=== PATIENT | female | born 1960 | race Caucasian/White ===

== ENCOUNTER → 2023-04-15 09:07 | Outpatient (REF) | payer OTHER, SELFPAY | LOC: HWRCS 09:07 | PROVIDERS: ATTENDING PHYSICIAN Internal Medicine Cardiovascular Disease; FAMILY PHYSICIAN Physician Assistant | DX: I10 Essential (primary) hypertension (principal); R00.2 Palpitations | CPT/HCPCS: 93306 ==

== ENCOUNTER 2023-08-08 14:35 | Emergency (ER) | payer OTHER, SELFPAY ==
[2023-08-08 14:39] VITALS: BP 148/94
--- NOTE | 2023-08-08 16:35 | ED.MUSCINJ ---
HPI-Injury
General
Chief Complaint: Musculo-Skeletal Complaint
Source: patient
Exam Limitations: none
Time Seen by Provider: 08/08/23 16:26
Nursing documentation reviewed up to this point in time: agreed with
History of Present Illness-Injury
Is this injury a work related problem?: No
Is pt an associate of [facility]/[place]?: No
Initial Injury comments:
Patient to ED with complaint of left knee and calf pain and swelling. Tibial plateu fx [address] ago[address] ORIF [address] Steven Olivas. Has not had any issues until days ago when symptoms started. SHe was seen by PA at [facility] today. She was told
xrays showed no issues with hardware. Told to take ibuprofen. Sent to ED for US and labs. She denies any injury. Denies fever/chills, skin rash. Brought self to ED for eval.
Past History
Past History
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
ED Past Surgical History: Orthopedic
Social History
Tobacco: Non-smoker
Alcohol: Occasional
Drug: None
Review of Systems
Review of Systems
Allergies reviewed?: Yes
All Other Systems: ROS reviewed and negative except as documented in HPI and ROS
Constitutional: Reports no symptoms
EENT: Reports no symptoms
Respiratory: Reports no symptoms
Cardiac: Reports no symptoms
ABD/GI: Reports no symptoms
Musculoskeletal: Reports joint pain (pain and swelling to left knee and calf)
Skin: Reports no symptoms
Neurological: Reports no symptoms
Psychiatric: Reports no symptoms
Musculoskeletal Injury Exam
Musculoskeletal Injury Exam
Left Knee:
Pain with Movement?: Moderate
Tender to palpation?: Mild
Soft tissue swelling?: Mild
External deformity and angulation?: None
Joint effusion?: None
Hematoma-local bleeding into tissue?: None
Strain- Sprain- Tear (Connective tissue injury)?: None
Crepitus with movement?: No
Joint instability?: No
Malalignment/deformity?: No
Range of motion: Limited
Distal skin color and temperature: normal-warm & good color
Capillary Refill: normal
Normal distal neurovascular exam?: Yes
Peripheral Pulses: posterior tibial (left): 3+ and dorsalis pedis (left): 3+
Left Calf:
Pain with Movement?: Mild
Tender to palpation?: Mild
Soft tissue swelling?: Mild
External deformity and angulation?: None
Joint effusion?: None
Contusion?: None
Hematoma-local bleeding into tissue?: None
Strain- Sprain- Tear (Connective tissue injury)?: None
Crepitus with movement?: No
Joint instability?: No
Malalignment/deformity?: No
Range of motion: Full
Distal skin color and temperature: normal-warm & good color
Capillary Refill: normal
Normal distal neurovascular exam?: Yes
Phy Exam
General Physical Exam
General Presentation: well appearing and no apparent distress
General age: appears stated age
General Skin: warm and dry
General Habitus: normal
General Mental: alert
Musculoskeletal Exam
Musculoskeletal Exam: full ROM and neuro vasc intact
Skin Exam
Skin Exam: normal color, warm/dry, no rash and other (No redness to LLE)
Psychiatric Exam
Psychiatric Exam: normal mood/affect
Injury Course
Orders/Labs/Results
Orders:
Orders
08/08/23 15:22
US Legs, Left [US Periph Venous LOWER Ext LT] Urgent
Comment:
Reason For Exam: swelling
08/08/23 16:40
CRP [C-Reactive Protein] Stat
Complete Blood Count/With Diff Urgent
Comprehensive Metabolic Panel Urgent
Sed Rate [Erythrocyte Sed Rate] Urgent
08/08/23 17:23
Knee Immobilizer Left-Treatmen ONCE
Abnormal Lab Results
08/08/23
16:40
RBC 4.07 L 10^6/uL
(4.20-5.40)
Hct 36.7 L %
(37.0-47.0)
MPV 11.7 H fL
(7.4-10.4)
Glucose 106 H mg/dl
(70-99)
08/08/23 16:40
08/08/23 16:40
*Radiology
Radiology exam reviewed: radiology read reviewed
*Pulse Oximetry
Patient hypoxic: no
*Critical Care Note
Total Time (30-74mins, 75-104mins- exclusive of procedures): Not Applicable
Update Note
Update Note:
Labs unremarkable. Afebrile in dept. Will place in knee immobilizer, recommend ice. She iwll follow up with ortho if her symptoms do not improve over the next week.
ED Attending Note
-
Portions of this chart may have been created with voice recognition software.� Occasional wrong word or��sound alike� substitutions may have occurred due to the inherent limitations of voice recognition software.
Discharge Plan
Departure
Patient Disposition: Home (Routine Discharge)
Date of Disposition: 08/08/23
Time of Disposition: 17:23
Patient with high blood pressure during this ER visit?: No
Condition: Good
Covid-19: Not Applicable
Discharge Problem:
Pain and swelling of left knee
Instructions: Knee Immobilizer (DC), Ibuprofen, Knee Pain (DC), Using Cold for Pain
Prescriptions:
No Action
lisinopril 5 mg tablet
5 mg PO DAILY Qty: 30 0RF
Referrals:
Héctor Harmon MD [Non-Admitting Privileges] - (Follow up if your symptoms do not improve over the next 5-7 days.)
Caty Daniel PA-C [Family Provider] -
Interventions
Interventions:
*Risk Screen - Suicide Last Done: 08/08/23 14:39
*General Assessment Last Done: 08/08/23 14:39
*Neglect/Abuse Screening Last Done: 08/08/23 14:39
ED- Fall Risk Assessment Last Done: 08/08/23 17:49
*ED COVID-19 Vaccine History Last Done: 08/08/23 14:39
*Nursing Disposition Last Done: 08/08/23 17:49
ED-Musculoskeletal Assessment Last Done: 08/08/23 17:00
Discharge Date and Time
Discharge Date/Time: 08/08/23 17:50
Print Language: BURMESE
[2023-08-08 16:47] LABS: % Basophils 0.4 % (0-2); % Eosinophils 3.3 % (0-6); % Immature Granulocytes 0.2 % (0-0.5); % Lymphocytes 21.1 % (20.5-51.1); % Monocytes 6.4 % (1.7-9.3); % Neutrophils 68.6 % (42.2-75.2); Absolute Eosinophils 0.2 10^3/uL (0-0.7); Absolute Lymphocytes 1.2 10^3/uL (1.2-3.4); Absolute Monocytes 0.4 10^3/uL (0.1-0.6); Absolute Neutrophils 3.8 10^3/uL (1.4-6.5); Hematocrit 36.7 % (37.0-47.0); Hemoglobin 12.5 g/dL (12.0-16.0); Mean Corp Hgb Conc. 34.1 g/dL (33.0-37.0); Mean Corpuscular Hgb 30.7 pg (27.0-31.0); Mean Corpuscular Volume 90.2 fL (81.0-99.0); Mean Platelet Volume 11.7 fL (7.4-10.4); Nucleated Red Blood Cells % 0 %; Platelet Count 170 10^3/uL (130-400); Red Blood Cell Count 4.07 10^6/uL (4.20-5.40); Red Cell Dist. Width 12.1 % (11.5-14.5); White Blood Cell Count 5.5 10^3/uL (4.8-10.8)
[2023-08-08 17:00] VITALS: BP 142/81
[2023-08-08 17:03] LABS: ALT (SGPT) 26 U/L (0-35); AST (SGOT) 21 U/L (14-36); Albumin 4.6 g/dl (3.5-5.0); Alkaline Phosphatase 70 U/L (38-126); Blood Urea Nitrogen 14 mg/dl (7-17); Calcium 9.8 mg/dl (8.4-10.2); Carbon Dioxide 26 mmol/L (22-30); Chloride 105 mmol/L (98-107); Glucose 106 mg/dl (70-99); Potassium 3.7 mmol/L (3.5-5.1); Sodium 139 mmol/L (135-145); Total Bilirubin 0.4 mg/dl (0.2-1.3); eGFR > 60.00
[2023-08-08 17:12] LABS: Erythrocyte Sed Rate 17 mm/hour (0-20)
[2023-08-08 17:19] LABS: C-Reactive Protein < 5.00 mg/L (0.0-10.00)
== END 2023-08-08 17:50 | disposition home or self-care (01) ==
LOC: EMR 14:35
PROVIDERS: Nurse Practitioner; EMERGENCY PHYSICIAN Student in an Organized Health Care Education/Training Program; FAMILY PHYSICIAN Physician Assistant
DX: M25.462 Effusion, left knee (principal); M25.562 Pain in left knee; M79.605 Pain in left leg; I10 Essential (primary) hypertension; Q79.8 Other congenital malformations of musculoskeletal system
CPT/HCPCS: 99284; 29505; 80053; 85025; 85652; 86140; 93971

== ENCOUNTER 2024-03-26 09:44 | Emergency (ER) | payer OTHER, SELFPAY ==
[2024-03-26 09:53] VITALS: BP 117/94
[2024-03-26 10:07] VITALS: BP 144/100
[2024-03-26 10:15] VITALS: BP 136/103
--- NOTE | 2024-03-26 10:23 | EDRN ---
Dr. Yancey in room w/pt at this time.
--- NOTE | 2024-03-26 10:29 | ED.GENMED ---
History of Present Illness
General
Chief Complaint: Cardiac Symptoms
Source: patient
Time Seen by Provider: 03/26/24 10:13
History of Present Illness
History of Present Illness:
63-year-old female with a history of [place] syndrome, hypertension, without recent changes of her medications presents with complaints of palpitations that started yesterday. She says that she stopped doing work around the house and just laid on
the sofa all day. She went to bed last night presuming that she would get better when she woke up however this morning she noted continued palpitations. Then, on her way to work, she noted discomfort in the right lower back that feels like she
'strained a muscle', although she denies heavy lifting or event that may have precipitated this. She describes it as mild, 3 out of 10, now 2 out of 10 without radiation. She denies abdominal pain, chest pain, dyspnea, headache, dizziness, leg
swelling, or other complaints.
Past History
Past History
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
ED Past Surgical History: Orthopedic and Other (Chest/breast/hand surgery related to [place] syndrome)
Social History
Tobacco: Non-smoker
Alcohol: Occasional
Drug: None
Employment: Employed
Phy Exam
Physical Exam
Physical Exam:
GENERAL: Alert , in no apparent distress, very well-appearing
EYE: pupils equal and reactive
NECK: Supple, no significant adenopathy.
ENT: o/p clr, mmm.
CARDIAC: Regular rate and rhythm .
LUNGS: Clear breath sounds bilaterally, no acute respiratory distress, no wheezes/rales/rhonchi
ABDOMEN: Soft, without focal tenderness, no r/g, no cvat
NEUROLOGICAL: Alert and oriented, no focal neuro deficits
SKIN: Warm and dry, skin intact, specifically no rash noted at right back area.
MUSCULOSKELETAL: No edema, well perfused.
PSYCH: Normal and appropriate interaction.
Course
Orders/Labs/Results
Orders:
Orders
03/26/24 09:44
Electrocardiogram (*1) Urgent
Reason for Study: Palpitations
EKG- Treatment ONCE
03/26/24 10:19
Cardiac Monitoring- Treatment ONCE
IV Insert/Care/Rem.- Treatment PRN
03/26/24 10:21
Complete Blood Count/With Diff Urgent
Comprehensive Metabolic Panel Urgent
TSH Urgent
Comment: ADD ON
Troponin I Urgent
03/26/24 10:31
Add On- LAB Urgent
Tests Added?: tsh
0.9% Sodium Chloride 500 ml [Nss] 500 ml IV BOLUS
Renal & Bladder US [US Renal With Bladder] Urgent
Comment:
Reason For Exam: R back pain
03/26/24 12:09
Urinalysis Reflex To Culture Urgent
Date Specimen was Collected: 03/26/24
Time Specimen was Collected: 12:06
Urine Microscopic Reflex Cult Urgent
Abnormal Lab Results
03/26/24 03/26/24
10:21 12:09
MPV 11.5 H fL
(7.4-10.4)
Absolute Lymphs (auto) 0.9 L 10^3/uL
(1.2-3.4)
Lymphocytes % 17.9 L %
(20.5-51.1)
BUN 22 H mg/dl
(7-17)
Glucose 110 H mg/dl
(70-99)
Ur Occult Blood Reflex 3+ A
(Negative)
03/26/24 10:21
03/26/24 10:21
Vital Signs
Initial and Last Documented VS:
Initial Vital Signs
Temp Pulse Resp BP Pulse Ox
98.4 F 119 20 117/94 99
03/26/24 09:53 03/26/24 09:53 03/26/24 09:53 03/26/24 09:53 03/26/24 09:53
Last Documented Vital Signs
Temp Pulse Resp BP Pulse Ox
98.4 F 86 16 132/91 98
03/26/24 09:53 03/26/24 12:15 03/26/24 12:15 03/26/24 12:00 03/26/24 12:15
*Critical Care Note
Total Time (30-74mins, 75-104mins- exclusive of procedures): Not Applicable
Update Note
Update Note:
Patient presents to the Emergency Department with palpitations and right lower back pain
Number and Complexity of Problems Addressed at the Encounter
� Chronic conditions affecting care:
� Acute Exacerbation and/or Progression of Chronic Illness:
� Differential Diagnosis includes: But not limited to dehydration, hyperthyroidism, arrhythmia, kidney stone, etc. etc.,
Amount and/or Complexity of Data to be Reviewed and Analyzed
� I performed an independent evaluation of and my interpretation is:
EKG:
CT:1. 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 Recommend outpatient confirmation with dedicated renal mass protocol CT or MRI.
2. No obstructing urinary calculi or hydronephrosis.Patient given copy of report by me with instructions for close follow-up
Xrays:
Laboratory Studies: Generally unremarkable, microscopic hematuria noted which will require follow-up and patient made aware
Other:
� Review of other/old records reveals: Patient had an echocardiogram here April 2023 that showed normal LV size and function with an EF of 60 to 65%
� Clinical information was obtained by an independent historian:
� Prescriptions/Medications Considered but not given:
� Further testing considered but not performed:
Risk of Complications and/or Morbidity or Mortality of Patient Management
� Social determinants of health affecting care:
� Discussion with other providers (PCP, Hospitalists, Consultants, etc):
� Escalation of care including admission/observation vs risk of discharge considered: 1:30 PM patient resting comfortably heart rate 82. Discussed with her her findings including hematuria and ultrasound report which I
physically handed to her. Discussed with patient reasons to return to the ER and importance of follow-up
ED Attending Note
-
Portions of this chart may have been created with voice recognition software.� Occasional wrong word or��sound alike� substitutions may have occurred due to the inherent limitations of voice recognition software.
Discharge Plan
Departure
Patient Disposition: Home (Routine Discharge)
Date of Disposition: 03/26/24
Time of Disposition: 13:30
Patient with high blood pressure during this ER visit?: Yes
Condition: Good
Discharge Problem:
Palpitations
Instructions: Palpitations, BLOOD PRESSURE
Prescriptions:
No Action
lisinopril 5 mg tablet
5 mg PO DAILY Qty: 30 0RF
Referrals:
Joan Pierce, [Family Provider] - Follow up in 2-3 days
Activity Restrictions/Additional Instructions:
PLEASE SEE ATTACHED ULTRASOUND REPORT, YOU WILL NEED FURTHER TESTING WITH YOUR DOCTOR ABOUT THIS WELL THE BLOOD THAT WAS NOTED IN YOUR URINE. PLEASE CONTACT YOUR DOCTOR THIS WEEK TO ARRANGE FOR THIS. IF YOU DEVELOP INCREASING NEW OR
PERSISTENT PAIN, DIFFICULTY URINATING, PAIN WITH URINATION, FEVER, CHILLS, ABDOMINAL PAIN, VOMITING, CHEST PAIN, SHORTNESS OF BREATH, OR OTHER WORRISOME SIGNS, PLEASE RETURN TO THE ER IMMEDIATELY
Interventions
Interventions:
*Risk Screen - Suicide Last Done: 03/26/24 09:53
*General Assessment Last Done: 03/26/24 09:53
*Neglect/Abuse Screening Last Done: 03/26/24 09:53
ED- Fall Risk Assessment Last Done: 03/26/24 10:20
*ED COVID-19 Vaccine History Last Done: 03/26/24 09:53
ED- Pulmonary Assessment Last Done: 03/26/24 10:20
ED- Cardiac Assessment Last Done: 02/17/25 10:20
Discharge Date and Time
Print Language: GERMAN
[2024-03-26 10:35] LABS: % Basophils 0.8 % (0-2); % Eosinophils 1.8 % (0-6); % Immature Granulocytes 0.2 % (0-0.5); % Lymphocytes 17.9 % (20.5-51.1); % Monocytes 5.5 % (1.7-9.3); % Neutrophils 73.8 % (42.2-75.2); Absolute Eosinophils 0.1 10^3/uL (0-0.7); Absolute Lymphocytes 0.9 10^3/uL (1.2-3.4); Absolute Monocytes 0.3 10^3/uL (0.1-0.6); Absolute Neutrophils 3.8 10^3/uL (1.4-6.5); Hematocrit 40.2 % (37.0-47.0); Hemoglobin 13.9 g/dL (12.0-16.0); Mean Corp Hgb Conc. 34.6 g/dL (33.0-37.0); Mean Corpuscular Hgb 30.8 pg (27.0-31.0); Mean Corpuscular Volume 89.1 fL (81.0-99.0); Mean Platelet Volume 11.5 fL (7.4-10.4); Nucleated Red Blood Cells % 0 %; Platelet Count 179 10^3/uL (130-400); Red Blood Cell Count 4.51 10^6/uL (4.20-5.40); Red Cell Dist. Width 12.9 % (11.5-14.5); White Blood Cell Count 5.1 10^3/uL (4.8-10.8)
[2024-03-26 10:48] LABS: ALT (SGPT) 24 U/L (0-35); AST (SGOT) 19 U/L (14-36); Albumin 4.5 g/dl (3.5-5.0); Alkaline Phosphatase 74 U/L (38-126); Blood Urea Nitrogen 22 mg/dl (7-17); Calcium 10.1 mg/dl (8.4-10.2); Carbon Dioxide 23 mmol/L (22-30); Chloride 106 mmol/L (98-107); Glucose 110 mg/dl (70-99); Potassium 3.8 mmol/L (3.5-5.1); Sodium 140 mmol/L (135-145); Total Protein 7.2 g/dl (6.3-8.2); eGFR > 60.00
[2024-03-26 10:49] VITALS: BMI 26.0
[2024-03-26] MEDS: NSS 500 IV (10:55)
[2024-03-26 10:59] LABS: Troponin I < 0.012 ng/ml
[2024-03-26 11:03] VITALS: BP 117/80
--- NOTE | 2024-03-26 11:05 | EDRN ---
Pt is aware urine spec needed and administered spec container and wipes.
[2024-03-26 12:00] VITALS: BP 132/91
[2024-03-26 12:22] LABS: Urine Albumin Negative (Neg - Trace); Urine Bilirubin Negative (Negative); Urine Character Clear (Clear); Urine Color Yellow; Urine Glucose Negative (Negative); Urine Ketone Negative (Negative); Urine Leukocyte Negative (Negative); Urine Nitrite Negative (Negative); Urine Occult Blood 3+ (Negative); Urine Specific Gravity 1.025 (<1.030); Urine Urobilinogen Negative (Neg - 1+)
[2024-03-26 13:00] VITALS: BP 125/82
[2024-03-26 14:21] LABS: Urine Bacteria Few (Negative); Urine White Cell 0-2 /HPF (0-5)
== END 2024-03-26 14:00 | disposition home or self-care (01) ==
LOC: EMR 09:44
PROVIDERS: EMERGENCY PHYSICIAN Emergency Medicine; FAMILY PHYSICIAN Family Medicine
DX: R00.2 Palpitations (principal); I10 Essential (primary) hypertension; M54.50 Low back pain, unspecified; R31.29 Other microscopic hematuria; Z98.890 Other specified postprocedural states
CPT/HCPCS: 96360; 96361; 99284; 76770; 80053; 81003; 81015; 84443; 84484; 85025; 93005

== ENCOUNTER → 2024-04-06 15:34 | Outpatient (REF) | payer OTHER, SELFPAY | LOC: RAD 15:34 | PROVIDERS: ATTENDING PHYSICIAN Physician Assistant | DX: R93.89 Abnormal findings on diagnostic imaging of other specified body structures (principal); N28.89 Other specified disorders of kidney and ureter; R31.29 Other microscopic hematuria | CPT/HCPCS: 74170; Q9967 ==